=== PATIENT | female | born 1985 | race American Indian/Alaskan Native ===

== ENCOUNTER 2017-04-02 14:01 | Emergency (ER) | payer MEDICAID, OTHER ==
[2017-04-02 14:29] VITALS: BP 143/84
--- NOTE | 2017-04-02 15:04 | Emergency Department Report ---
ED ENT HPI - General Chief complaint: Dental/Oral Stated complaint: MASS IN MOUTH Source: patient Mode of arrival: Ambulatory Limitations: No Limitations - History of Present Illness Initial comments: 31 year old female presents to ED with mild left inner cheek swelling x1 day. patient denies pain, fever, N/V. patient is stable, neurologically intact and in no acute distress. MD complaint: other (cheek swelling) Location: other (inner left cheek) Severity: mild Improves with: none Worsens with: none Associated Symptoms: denies: fever, cough, gum swelling, toothache, pain with swallowing, sore throat, tinnitus, hearing loss, discharge from ear - Related Data Home Medications Medication Instructions Recorded Confirmed Last Taken ALBUTEROL NEB's [Proventil 0.083%] 2.5 mg IH TID PRN 06/01/14 06/01/14 Unknown Previous Rx's Medication Instructions Recorded Last Taken Type Ibuprofen [Motrin] 800 mg PO Q8H PRN #20 tablet 06/01/14 Unknown Rx Clindamycin [Clindamycin CAP] 300 mg PO Q8H #21 cap 04/02/17 Unknown Rx Allergies Allergy/AdvReac Type Severity Reaction Status Date / Time pineapple [Pineapple] Allergy Angioedema Verified 06/01/14 12:33 steffany Allergy Shortness Uncoded 04/02/17 14:24 of Breath ED Dental HPI - General Chief complaint: Dental/Oral Stated complaint: MASS IN MOUTH Source: patient Mode of arrival: Ambulatory Limitations: No Limitations - Related Data Home Medications Medication Instructions Recorded Confirmed Last Taken ALBUTEROL NEB's [Proventil 0.083%] 2.5 mg IH TID PRN 06/01/14 06/01/14 Unknown Previous Rx's Medication Instructions Recorded Last Taken Type Ibuprofen [Motrin] 800 mg PO Q8H PRN #20 tablet 06/01/14 Unknown Rx Clindamycin [Clindamycin CAP] 300 mg PO Q8H #21 cap 04/02/17 Unknown Rx Allergies Allergy/AdvReac Type Severity Reaction Status Date / Time pineapple [Pineapple] Allergy Angioedema Verified 06/01/14 12:33 steffany Allergy Shortness Uncoded 04/02/17 14:24 of Breath ED Review of Systems ROS: Stated complaint: MASS IN MOUTH Other details as noted in HPI Constitutional: denies: chills, fever Eyes: denies: eye pain, eye discharge, vision change ENT: other (left inner cheek swelling). denies: ear pain, throat pain Respiratory: denies: cough, shortness of breath, wheezing Cardiovascular: denies: chest pain, palpitations Endocrine: no symptoms reported Gastrointestinal: denies: abdominal pain, nausea, diarrhea Genitourinary: denies: urgency, dysuria, discharge Musculoskeletal: denies: back pain, joint swelling, arthralgia Skin: denies: rash, lesions Neurological: denies: headache, weakness, paresthesias Psychiatric: denies: anxiety, depression Hematological/Lymphatic: denies: easy bleeding, easy bruising ED Past Medical Hx - Past Medical History Previous Medical History?: Yes Hx Asthma: Yes - Surgical History Past Surgical History?: No - Social History Smoking Status: Never Smoker Substance Use Type: Alcohol - Medications Home Medications: Home Medications Medication Instructions Recorded Confirmed Last Taken Type ALBUTEROL NEB's [Proventil 0.083%] 2.5 mg IH TID PRN 06/01/14 06/01/14 Unknown History Ibuprofen [Motrin] 800 mg PO Q8H PRN #20 tablet 06/01/14 Unknown Rx Clindamycin [Clindamycin CAP] 300 mg PO Q8H #21 cap 04/02/17 Unknown Rx ED Physical Exam - General Limitations: No Limitations General appearance: alert, in no apparent distress - Head Head exam: Present: atraumatic, normocephalic - Eye Eye exam: Present: normal appearance - ENT ENT exam: Present: mucous membranes moist, other (mild left inner cheek swelling. no tonisllar swelling or exudates present. ) - Neck Neck exam: Present: normal inspection. Absent: lymphadenopathy - Respiratory Respiratory exam: Present: normal lung sounds bilaterally. Absent: respiratory distress - Cardiovascular Cardiovascular Exam: Present: regular rate, normal rhythm. Absent: systolic murmur, diastolic murmur, rubs, gallop - GI/Abdominal GI/Abdominal exam: Present: soft, normal bowel sounds. Absent: tenderness - Extremities Exam Extremities exam: Present: normal inspection, full ROM - Back Exam Back exam: Present: normal inspection, full ROM - Neurological Exam Neurological exam: Present: alert, oriented X3, CN II-XII intact, normal gait - Psychiatric Psychiatric exam: Present: normal affect, normal mood - Skin Skin exam: Present: warm, dry, intact, normal color. Absent: rash ED Course Vital Signs 04/02/17 14:24 Temperature 98.5 F Pulse Rate 66 Respiratory 20 Rate Blood Pressure 143/84 O2 Sat by Pulse 100 Oximetry ED Medical Decision Making - Medical Decision Making 31 year old female presents to ED with mild left inner cheek swelling x1 day. swelling is painless upon palpation and mobile. no drainage or redness present. patient has no trouble breathing or swallowing. patient will be placed on PO antibiotics and is to follow up within 2-3 days with dentist or return to ED for recheck. Critical care attestation.: If time is entered above; I have spent that time in minutes in the direct care of this critically ill patient, excluding procedure time. ED Disposition Clinical Impression: Abscess, cheek Disposition: DISCHARGED TO HOME OR SELFCARE Is pt being admited?: No Does the pt Need Aspirin: No Condition: Stable Instructions: Abscess (ED) Prescriptions: Clindamycin [Clindamycin CAP] 300 mg PO Q8H #21 cap Referrals: PRIMARY CARE,MD [Primary Care Provider] - 2-3 Days (Return within 2-3 days to dentist or ED for recheck )
== END 2017-04-02 15:34 | disposition home or self-care (01) ==
LOC: ED 14:01
DX: L02.01 Cutaneous abscess of face (principal); J45.909 Unspecified asthma, uncomplicated; Z91.018 Allergy to other foods
CPT/HCPCS: 99282

== ENCOUNTER 2017-08-09 13:57 | Emergency (ER) | payer OTHER ==
[2017-08-09 14:03] VITALS: BP 117/71
[2017-08-09] MEDS ORDERED: MOTRIN PO ONE (14:44)
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
== END 2017-08-09 15:54 | disposition home or self-care (01) ==
LOC: ED 13:57
DX: T23.152A Burn of first degree of left palm, initial encounter (principal); T23.151A Burn of first degree of right palm, initial encounter; J45.909 Unspecified asthma, uncomplicated; Z91.018 Allergy to other foods; X17.XXXA Contact with hot engines, machinery and tools, initial encounter; Y93.89 Activity, other specified; Y92.89 Other specified places as the place of occurrence of the external cause; Y99.8 Other external cause status
CPT/HCPCS: 93005; 93010; 99283